=== PATIENT | female | born 1975 | race African-American/Black ===

== ENCOUNTER 2020-07-16 12:19 | Emergency (ER) | payer OTHER ==
[2020-07-16 12:36] VITALS: BMI 27.4
[2020-07-16] MEDS ORDERED: SODIUM CHLORIDE 1,000 ML IV STA (13:30)
[2020-07-16] MEDS ORDERED: ACETAMINOPHEN 1000 MG/100 ML VIAL (NON FORMULARY) IVPB ONE (13:30)
[2020-07-16] MEDS ORDERED: METOCLOPRAMIDE HCL INJECTION 10 MG/2 ML VIAL IVPB ONE (13:30)
[2020-07-16] MEDS ORDERED: ACETAMINOPHEN INJECTION 100 ML IVPB ONE (13:47)
[2020-07-16] MEDS ORDERED: METOCLOPRAMIDE HCL INJECTION 10 MG/2 ML VIAL ONE (13:47)
[2020-07-16 16:10] VITALS: BP 112/70; PULSE 67; TEMP 97.8
== END 2020-07-16 16:13 | disposition home or self-care (01) ==
LOC: JER 12:19
PROC: 3E023NZ Introduction of Analgesics, Hypnotics, Sedatives into Muscle, Percutaneous Approach (ICD-10-PCS; principal; 2020-07-16)
PROC: 3E033GC Introduction of Other Therapeutic Substance into Peripheral Vein, Percutaneous Approach (ICD-10-PCS; 2020-07-16)
PROC: 3E0337Z Introduction of Electrolytic and Water Balance Substance into Peripheral Vein, Percutaneous Approach (ICD-10-PCS; 2020-07-16)
DX: H53.462 Homonymous bilateral field defects, left side (principal); H57.12 Ocular pain, left eye
CPT/HCPCS: 99284-25; J0131